=== PATIENT | female | born 1965 | race Hispanic/Latino ===

== ENCOUNTER 2024-12-24 22:09 | Emergency (ER) | payer OTHER, MEDICAID, SELFPAY ==
[2024-12-24 22:20] VITALS: BP 178/77; PULSE 67; RESP 18; TEMP 36.5; O2SAT 98; BMI 31.2
--- NOTE | 2024-12-24 22:26 | DI.RAD.S_ITS ---
PROCEDURE: XR CHEST 1V INDICATIONS: chest pain TECHNIQUE: One view of the chest was acquired. COMPARISON: None. FINDINGS: Surgical changes and devices: Cholecystectomy clips. Lungs and pleura: Lungs are clear. No pleural effusions or pneumothorax. Mediastinum: Mediastinal contours appear normal. Heart size is normal. Bones and chest wall: No suspicious bony lesions. Overlying soft tissues appear unremarkable. IMPRESSION: No acute cardiopulmonary abnormality is seen. Dictated by: Paz Del Rio M.D. on 12/24/2024 at 23:20 Approved by: Paz Del Rio M.D. on 12/24/2024 at 23:21
--- NOTE | 2024-12-24 22:33 | EKG_ITS ---
[place] [id number] [place] [id number] Test Date: 2024-12-24 Pat Name: Camilo Gonzalez Department: [facility] Room: Gender: Female Senior Analytical Chemist: SORAIDA : 1965 Requested By: Order Number: [id number] Reading MD: Dinesh Thompson Measurements Intervals [place] Rate: 64 P: 42 [place]: 150 QRS: 7 QRSD: 82 T: 28 QT: 398 QTc: 410 Interpretive Statements Normal sinus rhythm Electronically Signed On 12-25-2024 19:11:03 PDT by Dinesh Thompson
[2024-12-24 22:59] VITALS: PULSE 63; RESP 13; O2SAT 97
[2024-12-24 23:00] VITALS: PULSE 65; RESP 13; O2SAT 95
[2024-12-24 23:04] VITALS: BP 137/77; PULSE 63; RESP 19; O2SAT 96
[2024-12-24 23:16] LABS: Add Manual Diff / Slide Review NO; Basophils Absolute Auto 100 /uL (0-100); Basophils Percent Auto 1.1 % (0-2); Eosinophils Absolute Auto 200 /uL (0-450); Eosinophils Percent Auto 2.9 % (2-4); Hematocrit 39.9 % (36-46); Lymphocytes Absolute Auto 2800 /uL (1100-4500); Lymphocytes Percent Auto 38.6 % (25-40); Mean Corpuscular HGB Conc 35.1 % (30-36); Mean Corpuscular Hemoglobin 30.9 PG (26-34); Mean Corpuscular Volume 88.1 fL (80-100); Monocytes Absolute Auto 300 /uL (0-900); Monocytes Percent Auto 4.6 % (3-14); Neutrophils Absolute Auto 3800 /uL (1500-7000); Neutrophils Percent Auto 52.8 % (50-75); Platelet Count 192 X10^3/uL (150-400); Red Blood Cell Count 4.53 X10^6/uL (4.0-5.2); Red Cell Distribution Width 12.8 % (11.6-14.8); White Blood Cell Count 7.2 X10^3/uL (4.5-11.0)
[2024-12-24 23:18] LABS: Prothrombin Time 11.2 SECONDS (9.4-12.5)
[2024-12-24 23:21] LABS: PTT Partial Thromboplastin Tim 34 SECONDS (25.1-36.5)
--- NOTE | 2024-12-24 23:24 | PC.NURSE ---
Pt reports sudden onset dizziness starting at 2030 this evening. States it is severe when lying flat, not present when sitting up. Turning head side to side causes dizziness and heaviness in head. FAST neg. Dr Villa notified of above.
[2024-12-24 23:30] VITALS: PULSE 61; RESP 21; O2SAT 95
[2024-12-25] VITALS: PULSE 61; RESP 20; O2SAT 95
[2024-12-25 00:05] LABS: Alanine Aminotransferase 23 IU/L (<35); Albumin 4.4 g/dL (3.5-5.0); Albumin Globulin Ratio 1.3 (1.0-2.8); Alkaline Phosphatase 84 U/L (38-126); Aspartate Aminotransferase 27 IU/L (14-36); BUN Creatinine Ratio 21.1 (6-22); Bilirubin Total 0.6 mg/dL (0.2-1.3); Blood Urea Nitrogen 15 mg/dL (7-17); Calcium 9.1 mg/dL (8.4-10.2); Carbon Dioxide 22 mmol/L (22-32); Chloride 106 mmol/L (98-107); Creatine Kinase 76 U/L (30-135); Estimated Glomerular Filt Rate > 60 mL/min (>60); Globulin 3.3 g/dL (1.7-4.1); Glucose 121 mg/dL (80-110); HEMOLYSIS < 15 (0-50); Lipase 144 U/L (23-300); Magnesium 2.2 mg/dL (1.6-2.3); Potassium 3.8 mmol/L (3.4-5.1); Sodium 138 mmol/L (137-145); Total Protein 7.7 g/dL (6.3-8.2)
--- NOTE | 2024-12-25 00:09 | DI.CT.S_ITS ---
PROCEDURE: CT ANGIO HEAD AND NECK INDICATIONS: dizziness TECHNIQUE: After the administration of intravenous contrast, 1 mm thick sections acquired from the aortic arch through the [place] of [place]. 3-dimensional gagbhlb-utwotjamk-hkjznndviu (MIP) and/or volume rendering reformats were acquired of the central intracranial vasculature and neck separately. For radiation dose reduction, the following was used: automated exposure control, adjustment of mA and/or kV according to patient size. COMPARISON: None. FINDINGS: Image quality: Diagnostic. HEAD CT ANGIOGRAPHY: Anterior circulation: Intracranial internal carotid arteries are normal in size and flow. The flow within the paired anterior cerebral arteries is normal and symmetric. The flow within the middle cerebral arteries is normal and symmetric. The anterior communicating artery is seen. No aneurysms are seen. Posterior circulation: Visualized portions of the vertebral arteries demonstrate normal caliber, and join to form a normal appearing basilar artery. Flow within the posterior cerebral arteries is normal and symmetric. No aneurysms are seen. NECK CT ANGIOGRAPHY: Carotid system: The great vessels demonstrate a conventional anatomy as they arise from the aortic arch. The origins of the common carotid arteries appear patent. The common carotid arteries demonstrate normal caliber and courses. The bifurcation regions are both widely patent. The internal carotid arteries demonstrate normal calibers and courses. Posterior circulation: The origins of the vertebral arteries both appear widely patent. The more superior extracranial portions of both vertebral arteries also demonstrate normal courses and calibers. They join to form a normal appearing basilar artery. Soft tissues: Visualized neck soft tissues demonstrate no suspicious abnormalities. Bones: No suspicious bony lesions. Visualized cervical spine appears normally aligned. IMPRESSION: No significant intracranial arterial abnormality is seen. No significant abnormality is seen within the arteries of the neck. Any quantitative measurements of stenosis were performed using NASCET criteria. Dictated by: Paz Del Rio M.D. on 12/25/2024 at 1:02 Approved by: Paz Del Rio M.D. on 12/25/2024 at 1:07
--- NOTE | 2024-12-25 00:09 | DI.CT.S_ITS ---
PROCEDURE: CT HEAD/BRAIN WO CON INDICATIONS: dizziness TECHNIQUE: Noncontrast 4.5 mm thick angled axial sections acquired from the foramen magnum to the vertex, with coronal and sagittal reformats. For radiation dose reduction, the following was used: automated exposure control, adjustment of mA and/or kV according to patient size. COMPARISON: None. FINDINGS: Image quality: Diagnostic. CSF spaces: Basal cisterns are patent. No extra-axial fluid collections. Ventricles are normal in size and shape. Brain: No midline shift. No intracranial masses or hemorrhage. Coreas-white matter interface is normal. Skull and face: Calvarium and visualized facial bones are intact, without suspicious lesions. Sinuses: Visualized sinuses and mastoids are clear. IMPRESSION: No CT evidence of acute intracranial process. Dictated by: Paz Del Rio M.D. on 12/25/2024 at 1:01 Approved by: Paz Del Rio M.D. on 12/25/2024 at 1:02
[2024-12-25 00:15] LABS: NT-proBNP (BNP-Adult 18+) 125 pg/mL (<125); Troponin I < 0.012 ng/mL (0.01-0.034)
[2024-12-25] MEDS: MECLIZINE HCL 12.5 MG TABLET 50 MG PO (00:33)
[2024-12-25 00:34] VITALS: BP 162/83; PULSE 61; RESP 18; O2SAT 99
[2024-12-25 01:00] VITALS: PULSE 58; RESP 19; O2SAT 95
[2024-12-25 01:30] VITALS: PULSE 50; RESP 16; O2SAT 95
--- NOTE | 2024-12-25 01:33 | ED_ITS ---
HPI - Dizziness General Chief Complaint: Dizziness Stated Complaint: headache, dizziness Time Seen by Provider: 12/25/24 00:09 Source: patient, RN notes reviewed and old records reviewed Mode of arrival: Ambulatory Limitations: no limitations History of Present Illness HPI Narrative: 59-year-old female with complaint of headache and dizziness and started around 2030 this evening. Urgent states about dizzy like the room was spinning the started him she had a should in looking at her cell phone in the what could turn her symptoms started. Patient was states worse with movement of her head. Mild headache. No double vision. No numbness tingling or weakness. Patient states has a little bit of nausea but no vomiting. States she felt a little short of breath and like she might have little chest pain is immediately after but stopped after a couple of minutes. Patient denies any weakness or difficulty with movement. She was not had similar symptoms in the past. Patient notes home medications include Tylenol, duloxetine, meloxicam and Flexeril as needed. No aspirin or anticoagulants. Has had prior bilateral hip replacement on cholecystectomy. No known drug allergies. No tobacco, occasional alcohol, no recreational drugs. Dr. Mccray is her primary care physician. Related Data Previous Rx's Medication Instructions Recorded meclizine 25 mg chewable tablet 25 mg PO QID PRN dizziness #20 tabs 12/25/24 Allergies Allergy/AdvReac Type Severity Reaction Status Date / Time No Known Drug Allergies Allergy Verified 12/24/24 22:20 Review of Systems Review of Systems ROS Unobtainable: All systems reviewed & are unremarkable except as noted in HPI and below Patient History Social History Smoking Status: Never smoker Smoking Status: Never smoker Exam Narrative Exam Narrative: GEN: well nourished, well appearing female, alert and oriented x 3, patient appears to be in mild distress. HEENT: Atraumatic, pupils are equal round reactive to light, extraocular movements are intact, no nystagmus, nares are clear, small amount of fluid in the right TM is retracted, in the left TM is retracted with no fluid,, there is no conjunctival pallor. Throat is clear without any exudates, erythema, tonsillar enlargement or uvular deviation, no facial droop HEART: Regular rate and rhythm without murmur, clicks, rubs. Pulses are equal in upper and lower extremities LUNGS:Lungs clear to auscultation, no wheezes, rales, crackles, chest moves symmetrically ABD:bowel sounds normal, soft, non-tender, no guarding, rebound, rigidity, no masses noted, no hepatosplenomegaly :No CVA tenderness MSCL: Non-tender, no muscle atrophy, muscles strength 5/5 upper and lower extremities, full range of motion. NEURO:CN 2-12 intact, sensation normal, finger nose finger test normal. Heel martin is normal. Initial Vital Signs Initial Vital Signs: Vital Signs Temperature 97.7 F 12/24/24 22:20 Pulse Rate 67 12/24/24 22:20 Respiratory Rate 18 12/24/24 22:20 Blood Pressure 178/77 H 12/24/24 22:20 Pulse Oximetry 98 12/24/24 22:20 Oxygen Delivery Method Room Air 12/24/24 22:20 Course Orders Ordered: ED Orders 12/24/24 22:26 XR chest 1V Stat EKG-12 Lead Stat 12/24/24 23:00 Complete Blood Count AUTO DIFF Stat Comprehensive Metabolic Panel Stat Lipase Stat Magnesium Stat NT-proBNP (BNP-Adult 18+) Stat PTT Partial Thromboplastin Umer Stat Prothrombin Time INR Stat Troponin & CK Cardiac Panel Stat 12/25/24 00:09 CT angio head and neck Stat CT head/brain wo con Stat Discontinued Medications Meclizine HCl (Meclizine Hcl 12.5 Mg Tablet) 50 mg PO NOW ONE Stop: 12/25/24 00:10 Last Admin: 12/25/24 00:33 Dose: 50 mg Documented By: SANDIE Vital Signs Vital signs: Vital Signs - 8 hr 12/24/24 22:20 12/24/24 22:59 12/24/24 23:00 Temperature 97.7 F Pulse Rate 67 63 65 Respiratory Rate 18 13 13 Blood Pressure 178/77 H Pulse Oximetry 98 97 95 Oxygen Delivery Method Room Air 12/24/24 23:04 12/24/24 23:04 12/24/24 23:30 Temperature Pulse Rate 63 61 Respiratory Rate 19 21 Blood Pressure 137/77 Pulse Oximetry 96 95 Oxygen Delivery Method 12/25/24 00:00 12/25/24 00:34 12/25/24 00:34 Temperature Pulse Rate 61 61 Respiratory Rate 20 18 Blood Pressure 162/83 H Pulse Oximetry 95 99 Oxygen Delivery Method 12/25/24 01:00 12/25/24 01:30 12/25/24 02:00 Temperature Pulse Rate 58 L 50 L 58 L Respiratory Rate 19 16 18 Blood Pressure Pulse Oximetry 95 95 98 Oxygen Delivery Method Room Air 12/25/24 02:14 12/25/24 02:14 Temperature Pulse Rate 59 L Respiratory Rate 20 Blood Pressure 135/70 Pulse Oximetry Oxygen Delivery Method MDM - Dizziness Lab Data 12/24/24 23:00 12/24/24 23:00 Labs: Lab Results 12/24/24 Range/Units 23:00 WBC 7.2 (4.5-11.0) X10^3/uL RBC 4.53 (4.0-5.2) X10^6/uL Hgb 14.0 (12.0-16.0) g/dL Hct 39.9 (36-46) % MCV 88.1 (80-100) fL MCH 30.9 (26-34) PG MCHC 35.1 (30-36) % RDW 12.8 (11.6-14.8) % Plt Count 192 (150-400) X10^3/uL Neut % (Auto) 52.8 (50-75) % Lymph % (Auto) 38.6 (25-40) % Rich % (Auto) 4.6 (3-14) % Eos % (Auto) 2.9 (2-4) % Baso % (Auto) 1.1 (0-2) % Neut # (Auto) 3800 (0249-8909) /uL Lymph # (Auto) 2800 (0052-0380) /uL Rich # (Auto) 300 (0-900) /uL Eos # (Auto) 200 (0-450) /uL Baso # (Auto) 100 (0-100) /uL PT 11.2 (9.4-12.5) SECONDS INR 1.0 (0.9-1.3) APTT 34 (25.1-36.5) SECONDS Sodium 138 (137-145) mmol/L Potassium 3.8 (3.4-5.1) mmol/L Chloride 106 (98-107) mmol/L Carbon Dioxide 22 (22-32) mmol/L BUN 15 (7-17) mg/dL Creatinine 0.71 (0.52-1.04) mg/dL Estimated GFR > 60 (>60) mL/min BUN/Creatinine Ratio 21.1 (6-22) Glucose 121 H (80-110) mg/dL Calcium 9.1 (8.4-10.2) mg/dL Magnesium 2.2 (1.6-2.3) mg/dL Total Bilirubin 0.6 (0.2-1.3) mg/dL AST 27 (14-36) IU/L ALT 23 (<35) IU/L Alkaline Phosphatase 84 (38-126) U/L Total Creatine Kinase 76 (30-135) U/L Troponin I < 0.012 (0.01-0.034) ng/mL NT-Pro-B Natriuret Pep 125 H (<125) pg/mL Total Protein 7.7 (6.3-8.2) g/dL Albumin 4.4 (3.5-5.0) g/dL Globulin 3.3 (1.7-4.1) g/dL Albumin/Globulin Ratio 1.3 (1.0-2.8) Lipase 144 (23-300) U/L ECG Data Attestation: I personally reviewed and interpreted this ECG as follows: Prior ECG tracings: not available for review Interpretation: Sinus rhythm rate of 64 NC 150 QRS 82 QTC of 410, no acute ST elevation depression noted. No prior for comparison. [facility] [place] Narrative Medical decision making narrative: EKG shows sinus rhythm Labs normal CBC, normal coags, glucose is 121 otherwise normal electrolytes, creatinine, LFTs are negative troponins less than 0.012 with a BNP of 125. Non-con head CT negative for acute change CTA head and neck negative for acute change. Chest x-ray shows no acute change. Patient received meclizine feeling much improved. Patient has normal neurologic exam. Reviewed findings with the patient, her exam is overall reassuring my suspicion for neurologic source is low. Patient is felt appropriate for discharge home. Discussed return precautions all questions answered. Discharge Plan Departure Patient Disposition: Home Clinical Impression: Vertigo Instructions: DI for Vertigo Activity Restrictions/Additional Instructions: Please follow up if you are having symptoms that have not completely resolved, contacts included below to follow up with ENT or an ear nose throat physician. You can take meclizine 1-2 tablets every 6 hours as needed. Prescription was sent to [facility] in [place]. This medication is available [id number] as bonivert. Please return if you have severe symptoms, rapidly worsening symptoms any new numbness, tingling or weakness, double vision, difficulty with speech, facial droop, persistent vomiting, inability to ambulate safely or other new or concerning changes. Prescriptions: New meclizine 25 mg tablet,chewable 25 mg PO QID PRN (Reason: dizziness) Qty: 20 0RF Referrals: Gail Mccray MD [Primary Care Provider] - Stand Alone Forms: Patient Portal/API/Survey
[2024-12-25 02:00] VITALS: PULSE 58; RESP 18; O2SAT 98
[2024-12-25 02:14] VITALS: BP 135/70; PULSE 59; RESP 20
== END 2024-12-25 02:19 | disposition home or self-care (01) ==
PROVIDERS: Emergency Provider Emergency Medicine; PCP Family Medicine
DX: R42 Dizziness and giddiness (principal); R51.9 Headache, unspecified
CPT/HCPCS: 36415; 70450; 70496; 70498; 71045; 80053; 82550; 83690; 83735; 83880; 84484; 85025; 85610; 85730; 93005; 99284; Q9967